=== PATIENT | female | born 1960 | race Hispanic/Latino ===

== ENCOUNTER 2024-05-27 14:09 | Inpatient (IN) | payer MEDICARE ==
[~2024-05-27] VITALS: Ht 167.6 cm; Wt 115.2 kg
[2024-05-27] MEDS ORDERED: Morphine 4mg INJECTION 4 MG/ML INJ IV STA ×2 (14:27→15:03)
[2024-05-27] MEDS: SODIUM CHLORIDE 0.9% 1000ML 1,000 ML IV STA (14:57)
[2024-05-27 14:58] LABS: BASOPHILS % 0.2 % (0.0-1.0); EOSINOPHILS % 0.1 % (0.0-6.0); HEMATOCRIT 43.9 % (34.2-44.1); HEMOGLOBIN 14.5 g/dL (12.0-16.0); LYMPHOCYTES # (AUTO) 0.7 (1.0-3.2); LYMPHOCYTES % 4.3 % (18.0-39.1); MEAN CORPUSCULAR HEMOGLOBIN 29.9 pg (28-32); MEAN CORPUSCULAR VOLUME 90.5 fL (81-99); MONOCYTES # (AUTO) 0.5 (0.2-0.8); MONOCYTES % 3.6 % (4.4-11.3); NEUTROPHILS # (AUTO) 13.7 (2.1-6.9); NEUTROPHILS % 91.3 % (38.7-80.0); PLATELET COUNT 266 x10e3/uL (140-360); RED BLOOD COUNT 4.85 x10e6/uL (3.6-5.1); RED CELL DISTRIBUTION WIDTH 14.6 % (11.7-14.4); WHITE BLOOD COUNT 15.03 x10e3/uL (4.8-10.8)
[2024-05-27] MEDS: ONDANSETRON HCL INJ 2MG/ML 2ML 2 MG/ML VIAL IV STA (14:58)
[2024-05-27 15:04] LABS: BACTERIA,URINE FEW /HPF; BILIRUBIN,URINE NEGATIVE (NEGATIVE); CLARITY,URINE CLEAR (CLEAR); COLOR,URINE YELLOW (YELLOW); EPITHELIAL CELLS,URINE FEW /LPF; GLUCOSE, URINE 500 (NEGATIVE); KETONES,URINE 1+ (NEGATIVE); LEUKOCYTE ESTERASE ,URINE NEGATIVE (NEGATIVE); NITRITE,URINE NEGATIVE (NEGATIVE); PH,URINE 6.5 (5 - 7); PROTEIN,URINE DIPSTICK >=300 (NEGATIVE); URINE UROBILINOGEN 0.2 mg/dL (0.2 - 1); WBC,URINE (MAN) 0-5 /HPF (0-5)
[2024-05-27] MEDS: KETOROLAC TROMETHAMINE 30 MG/ML VIAL IM STA (15:13)
[2024-05-27] MEDS: Morphine 4mg INJECTION 4 MG/ML INJ IV STA (15:13)
[2024-05-27 15:23] LABS: ALANINE AMINOTRANSFERASE 10 IU/L (0-55); ALBUMIN 3.6 g/dL (3.5-5.0); ALKALINE PHOSPHATASE 67 IU/L (40-150); ANION GAP 18.1 mmol/L (8-16); BILIRUBIN,TOTAL 0.9 mg/dL (0.2-1.2); BLOOD UREA NITROGEN 15 mg/dL (7-26); BUN/CREATININE RATIO 18 (6-25); CALCIUM 9.1 mg/dL (8.4-10.2); CARBON DIOXIDE 23 mmol/L (22-29); CHLORIDE 95 mmol/L (98-107); CREATINE KINASE 34 IU/L (29-168); CREATININE, SERUM 0.82 mg/dL (0.57-1.11); EST GLOMERULAR FILTRATION RATE 81 ML/MIN (>=60); GLUCOSE 197 mg/dL (74-118); LIPASE 16 U/L (8-78); POTASSIUM 4.1 mmol/L (3.5-5.1); SODIUM 132 mmol/L (136-145); TOTAL PROTEIN 7.3 g/dL (6.5-8.1)
[2024-05-27] MEDS ORDERED: IOPAMIDOL 370 MG/ML 100 ML INFUS..BTL INJ ONE (15:29)
[2024-05-27 15:35] LABS: TROPONIN I < 0.001 ng/mL (0-0.300)
[2024-05-27] MEDS: SODIUM CHLORIDE 0.9% 1000ML 1,000 ML IV SCH (17:01)
[2024-05-27] MEDS: ONDANSETRON HCL INJ 2MG/ML 2ML 2 MG/ML VIAL IV PRN (17:02)
[2024-05-27] MEDS: Morphine 4mg INJECTION 4 MG/ML INJ IV PRN (17:02)
[2024-05-27 17:07] VITALS: PULSE 86; RESP 18; TEMP 98.2
[2024-05-27 18:25] VITALS: BP 115/48; PULSE 87; RESP 18; TEMP 98.3; O2SAT 95
[2024-05-27 19:39] VITALS: BP 123/45; PULSE 79; RESP 18; TEMP 98.3; O2SAT 99
[2024-05-27 23:33] VITALS: BP 113/41; PULSE 81; RESP 18; TEMP 99.4; O2SAT 95
[2024-05-28] VITALS (9 sets, daily range): BP systolic 108–130; BP diastolic 41–72; PULSE 76–85; RESP 18–20; TEMP 98.4–99.4; O2SAT 95–98
[2024-05-28] MEDS ORDERED: ROSUVASTATIN CAL5 MG (00:33)
[2024-05-28] MEDS ORDERED: PLAVIX75 MG PO (00:33)
[2024-05-28] MEDS ORDERED: LOSARTAN POTAS100 MG PO (00:33)
[2024-05-28] MEDS ORDERED: METFORMIN HCL500 MG PO (00:33)
[2024-05-28] MEDS ORDERED: LEVOTHYROXINE50 MCG PO (00:33)
[2024-05-28 05:24] LABS: BASOPHILS % 0.4 % (0.0-1.0); EOSINOPHILS % 0.4 % (0.0-6.0); HEMATOCRIT 38.6 % (34.2-44.1); HEMOGLOBIN 12.5 g/dL (12.0-16.0); LYMPHOCYTES # (AUTO) 1.1 (1.0-3.2); LYMPHOCYTES % 12.7 % (18.0-39.1); MEAN CORPUSCULAR HEMOGLOBIN 29.8 pg (28-32); MEAN CORPUSCULAR HGB CONC 32.4 g/dL (31-35); MEAN CORPUSCULAR VOLUME 92.1 fL (81-99); MONOCYTES # (AUTO) 0.5 (0.2-0.8); MONOCYTES % 5.7 % (4.4-11.3); NEUTROPHILS # (AUTO) 6.7 (2.1-6.9); NEUTROPHILS % 80.3 % (38.7-80.0); PLATELET COUNT 187 x10e3/uL (140-360); RED BLOOD COUNT 4.19 x10e6/uL (3.6-5.1); RED CELL DISTRIBUTION WIDTH 14.6 % (11.7-14.4); WHITE BLOOD COUNT 8.28 x10e3/uL (4.8-10.8)
[2024-05-28 06:12] LABS: ALBUMIN 2.8 g/dL (3.5-5.0); ALBUMIN/GLOBULIN RATIO 0.8 (0.8-2.0); ANION GAP 14.9 mmol/L (8-16); BILIRUBIN,TOTAL 0.8 mg/dL (0.2-1.2); CALCIUM 8.4 mg/dL (8.4-10.2); CREATININE, SERUM 0.76 mg/dL (0.57-1.11); POTASSIUM 3.9 mmol/L (3.5-5.1); TOTAL PROTEIN 6.1 g/dL (6.5-8.1)
[2024-05-28 06:34] LABS: CREATINE KINASE 33 IU/L (29-168)
[2024-05-28 06:42] LABS: TROPONIN I < 0.001 ng/mL (0-0.300)
[2024-05-28 13:40] LABS: CREATINE KINASE 35 IU/L (29-168)
[2024-05-28 13:46] LABS: TROPONIN I < 0.001 ng/mL (0-0.300)
[2024-05-29] VITALS (7 sets, daily range): BP systolic 123–157; BP diastolic 55–67; PULSE 67–81; RESP 10–18; TEMP 97.9–98.6; O2SAT 98–100
[2024-05-29] MEDS: LEVOTHYROXINE SODIUM 50 MCG TAB PO SCH (05:37)
[2024-05-29 05:41] LABS: BASOPHILS % 0.5 % (0.0-1.0); EOSINOPHILS # (AUTO) 0.1 (0.0-0.4); HEMATOCRIT 37.5 % (34.2-44.1); HEMOGLOBIN 11.9 g/dL (12.0-16.0); LYMPHOCYTES # (AUTO) 1.1 (1.0-3.2); MEAN CORPUSCULAR HEMOGLOBIN 29.5 pg (28-32); MEAN CORPUSCULAR HGB CONC 31.7 g/dL (31-35); MEAN CORPUSCULAR VOLUME 93.1 fL (81-99); MONOCYTES # (AUTO) 0.5 (0.2-0.8); NEUTROPHILS # (AUTO) 6.9 (2.1-6.9); PLATELET COUNT 199 x10e3/uL (140-360); RED BLOOD COUNT 4.03 x10e6/uL (3.6-5.1); RED CELL DISTRIBUTION WIDTH 14.3 % (11.7-14.4); WHITE BLOOD COUNT 8.69 x10e3/uL (4.8-10.8)
[2024-05-29 06:07] LABS: CALCIUM 8.4 mg/dL (8.4-10.2); CREATININE, SERUM 0.65 mg/dL (0.57-1.11)
[2024-05-29] MEDS: LOSARTAN POTASSIUM 100 MG TAB PO SCH (09:31)
[2024-05-29] MEDS: HYDROCODONE/APAP 7.5MG-325MG 1 EA TAB PO PRN (23:51)
[2024-05-30] VITALS: BP 153/58; PULSE 68; RESP 18; TEMP 97.9; O2SAT 98
[2024-05-30 04:00] VITALS: BP 129/60; PULSE 62; RESP 17; TEMP 97.1; O2SAT 99
[2024-05-30 07:40] VITALS: BP 133/70; PULSE 62; RESP 18; TEMP 98.7; O2SAT 97
[2024-05-30 08:59] VITALS: BP 133/70; PULSE 62; RESP 18; TEMP 98.7; O2SAT 97
[2024-05-30] MEDS ORDERED: ULTRAM 50MG50 MG PO (15:56)
[2024-05-30] MEDS ORDERED: AUGMENTIN 500-1 EACH PO (15:56)
[2024-05-30 16:44] VITALS: BP 176/83; PULSE 72; RESP 20; TEMP 97.6; O2SAT 100
== END 2024-05-30 17:50 | disposition home or self-care (01) | DRG 394 ==
LOC: ER 14:16 → ERHOLD 17:46 → MED/SURG 18:21
PROVIDERS: ADMIT Internal Medicine; ATTEND Internal Medicine
DX: K35.80 Unspecified acute appendicitis (principal); K57.32 Diverticulitis of large intestine without perforation or abscess without bleeding; Z68.41 Body mass index [BMI] 40.0-44.9, adult; I10 Essential (primary) hypertension; E78.5 Hyperlipidemia, unspecified; E11.9 Type 2 diabetes mellitus without complications; Z79.84 Long term (current) use of oral hypoglycemic drugs; K42.9 Umbilical hernia without obstruction or gangrene; R16.0 Hepatomegaly, not elsewhere classified; N83.8 Other noninflammatory disorders of ovary, fallopian tube and broad ligament; E66.01 Morbid (severe) obesity due to excess calories; M19.011 Primary osteoarthritis, right shoulder; Z86.73 Personal history of transient ischemic attack (TIA), and cerebral infarction without residual deficits; Z90.49 Acquired absence of other specified parts of digestive tract; Z79.899 Other long term (current) drug therapy; Z79.02 Long term (current) use of antithrombotics/antiplatelets; Z88.5 Allergy status to narcotic agent
CPT/HCPCS: 36415; 74177; 80048; 80053; 81001; 82550; 82948; 83036; 83690; 84484; 85025; 93005; 99284; J1885; J2270; J2405; J2543; J7030; Q9967